=== PATIENT | female | born 1960 | race Two or more races ===

== ENCOUNTER → 2021-10-25 09:55 | Outpatient (BNVA) | payer MEDICAID, SELFPAY | PROVIDERS: PCP Internal Medicine; Visit Provider Psychiatry & Neurology Neurology | DX: R56.9 Unspecified convulsions (principal); G47.33 Obstructive sleep apnea (adult) (pediatric); F10.20 Alcohol dependence, uncomplicated | CPT/HCPCS: 99212 ==